=== PATIENT | male | born 1960 | race Caucasian/White ===

== ENCOUNTER 2017-09-19 12:39 | Emergency (ER) | payer BC | END 2017-09-19 13:53 | disposition home or self-care (01) | LOC: D.ER 12:39 | DX: S16.1XXA Strain of muscle, fascia and tendon at neck level, initial encounter (principal); X58.XXXA Exposure to other specified factors, initial encounter; Y93.89 Activity, other specified; Y92.89 Other specified places as the place of occurrence of the external cause; M54.12 Radiculopathy, cervical region; I10 Essential (primary) hypertension; F17.200 Nicotine dependence, unspecified, uncomplicated ==

== ENCOUNTER 2018-04-04 12:25 | Emergency (ER) | payer MEDICAID ==
[~2018-04-04] VITALS: Ht 182.9 cm; Wt 75.0 kg
[2018-04-04 12:53] VITALS: Ht 182.9 cm; Wt 75.0 kg
[2018-04-04] MEDS ORDERED: NORCO 7.5/325 T1 TA1 PO (15:27)
[2018-04-04] MEDS ORDERED: ROBAXIN500 MG PO (15:27)
[2018-04-04] MEDS ORDERED: MEDROL DOSE PACK4 MG PO (15:27)
[2018-04-04 15:53] VITALS: BP 121/77
== END 2018-04-04 15:55 | disposition home or self-care (01) ==
LOC: D.ER 12:25
DX: M54.12 Radiculopathy, cervical region (principal); F17.200 Nicotine dependence, unspecified, uncomplicated

== ENCOUNTER → 2018-04-17 14:44 | Outpatient (CLI) | payer MEDICAID ==
[2018-04-04 12:53] VITALS: BMI 22.4
[~2018-04-17 14:44] MED LIST: MEDROL DOSE PACK4 MG PO; NORCO 7.5/325 T1 TA1 PO; ROBAXIN500 MG PO
== END | disposition home or self-care (01) ==
LOC: D.MRI 14:44
DX: M54.12 Radiculopathy, cervical region (principal)

== ENCOUNTER → 2018-05-11 11:58 | Outpatient (CLI) | payer MEDICAID ==
[2018-04-04 12:53] VITALS: BMI 22.4
== END | disposition home or self-care (01) ==
LOC: D.MRI 11:58
DX: M54.12 Radiculopathy, cervical region (principal)